=== PATIENT | male | born 1975 | race Caucasian/White ===

== ENCOUNTER 2019-06-16 16:30 | Emergency (ER) | payer BC ==
[~2019-06-16] VITALS: Ht 180.3 cm; Wt 111.1 kg
== END 2019-06-16 20:02 | disposition home or self-care (01) ==
LOC: ER 16:30
DX: K52.89 Other specified noninfective gastroenteritis and colitis (principal)

== ENCOUNTER → 2019-06-17 | Emergency (ER) | payer BC ==
[~2019-06-17] VITALS: Ht 180.3 cm; Wt 108.9 kg
== END | disposition home or self-care (01) ==
LOC: ER 11:46
DX: K52.89 Other specified noninfective gastroenteritis and colitis (principal); E86.0 Dehydration